=== PATIENT | female | born 1975 | race Caucasian/White ===

== ENCOUNTER 2023-06-04 21:20 | Outpatient (REF) | payer SELFPAY | END 2023-06-04 21:21 | disposition home or self-care (01) | LOC: LBN 21:20 | PROVIDERS: PCP Nurse Practitioner Family; Visit Provider Physician Assistant Medical | DX: J02.9 Acute pharyngitis, unspecified (principal) | CPT/HCPCS: 87070 ==

== ENCOUNTER 2024-07-05 19:10 | Outpatient (REF) | payer BC, SELFPAY ==
[2024-07-05 16:01] LABS: HCT 43.9 % (36.0-46.0); HGB 14.1 g/dL (11.2-15.7); MCH 29.5 pg (27.0-33.0); MCHC 32.1 % (32.0-36.0); MCV 92 fL (80-95); MPV 11.2 fL (8.0-11.0); Platelet Count 209 10^3/uL (130-400); RBC 4.78 10^6/uL (3.93-5.22); RDW 12.3 % (11.7-14.6); RDW-SD 41.3 fL; WBC 7.42 10^3/uL (4.4-10.8)
[2024-07-05 21:30] LABS: ALT 31 U/L (14-59); AST 23 U/L (15-37); Albumin 3.4 g/dL (3.4-5.0); Alkaline Phosphatase 84 U/L (46-116); Anion Gap 10.3 mmol/L (3-11); BUN 20 mg/dL (7-18); Bilirubin, Total 0.41 mg/dL (0.2-1.0); CO2 24.7 mmol/L (21.0-32.0); CREATININE 1.1 mg/dL (0.55-1.02); Calcium 8.8 mg/dL (8.5-10.1); Chloride 108 mmol/L (98-107); Estimated GFR 62.76 (mL/min/1.73m2); Glucose 86 mg/dL (74-106); Potassium 4.2 mmol/L (3.5-5.1); Sodium 143 mmol/L (136-145); Total Protein 7.2 g/dL (6.4-8.2)
== END 2024-07-05 19:11 | disposition home or self-care (01) ==
LOC: NCHCN 19:10
PROVIDERS: PCP Nurse Practitioner Family; Visit Provider Nurse Practitioner Family
DX: N18.1 Chronic kidney disease, stage 1 (principal)
CPT/HCPCS: 80053; 85027

== ENCOUNTER 2025-01-27 09:04 | Outpatient (REF) | payer OTHER, SELFPAY ==
[2025-01-27 16:06] LABS: HCT 39.7 % (36.0-46.0); HGB 13.1 g/dL (11.2-15.7); MCH 29.4 pg (27.0-33.0); MCV 89 fL (80-95); MPV 11.3 fL (8.0-11.0); Platelet Count 188 10^3/uL (130-400); RBC 4.45 10^6/uL (3.93-5.22); RDW 12.6 % (11.7-14.6); RDW-SD 41.1 fL; WBC 6.16 10^3/uL (4.4-10.8)
[2025-01-27 16:11] LABS: ESR 12 mm/hr (0-20)
[2025-01-27 16:51] LABS: Hemoglobin A1C 4.9 % (<5.7)
[2025-01-27 16:55] LABS: ALT 46 U/L (14-59); AST 27 U/L (15-37); Albumin 3.4 g/dL (3.4-5.0); Alkaline Phosphatase 85 U/L (46-116); Anion Gap 8.8 mmol/L (3-11); BUN 22 mg/dL (7-18); Bilirubin, Total 0.4 mg/dL (0.2-1.0); CO2 26.2 mmol/L (21.0-32.0); CREATININE 1.2 mg/dL (0.55-1.02); Calcium 9.4 mg/dL (8.5-10.1); Calculated LDL 59 mg/dL (<100); Chloride 105 mmol/L (98-107); Cholesterol 148 mg/dL (<200); Estimated GFR 56.19 (mL/min/1.73m2); Glucose 91 mg/dL (74-106); HDL Cholesterol 75 mg/dL (>or=50); Potassium 4.2 mmol/L (3.5-5.1); Sodium 140 mmol/L (136-145); TSH 1.11 uIU/mL (0.36-3.74); Total Protein 6.7 g/dL (6.4-8.2); Triglyceride 71 mg/dL (<150)
[2025-01-27 17:20] LABS: C-Reactive Protein 0.72 mg/dL (<or=0.5)
== END 2025-01-27 09:05 | disposition home or self-care (01) ==
LOC: NCHCN 09:04
PROVIDERS: PCP Nurse Practitioner Family; Visit Provider Nurse Practitioner Family
DX: M06.00 Rheumatoid arthritis without rheumatoid factor, unspecified site (principal); N18.1 Chronic kidney disease, stage 1; Z13.220 Encounter for screening for lipoid disorders; Z13.1 Encounter for screening for diabetes mellitus; Z13.29 Encounter for screening for other suspected endocrine disorder
CPT/HCPCS: 80053; 80061; 85027; 85652; 83036; 84443; 86140

== ENCOUNTER 2025-06-21 13:13 | Outpatient (REF) | payer OTHER, SELFPAY ==
[2025-06-21 14:41] LABS: Abs Immature Grans 0.02 10^3/uL (0.0-0.06); HCT 37.5 % (36.0-46.0); HGB 12.2 g/dL (11.2-15.7); Immature Grans % 0.3 %; MCH 29.0 pg (27.0-33.0); MCHC 32.5 % (32.0-36.0); MCV 89 fL (80-95); MPV 11.2 fL (8.0-11.0); Platelet Count 208 10^3/uL (130-400); RBC 4.21 10^6/uL (3.93-5.22); RDW 12.2 % (11.7-14.6); RDW-SD 39.6 fL; WBC 7.89 10^3/uL (4.4-10.8)
[2025-06-21 14:48] LABS: ESR 16 mm/hr (0-20)
[2025-06-21 15:08] LABS: ALT 35 U/L (14-59); AST 20 U/L (15-37); Albumin 3.1 g/dL (3.4-5.0); Alkaline Phosphatase 103 U/L (46-116); Anion Gap 8.1 mmol/L (3-11); BUN 18 mg/dL (7-18); Bilirubin, Total 0.3 mg/dL (0.2-1.0); C-Reactive Protein 5.80 mg/dL (<or=0.5); CO2 26.9 mmol/L (21.0-32.0); Calcium 8.5 mg/dL (8.5-10.1); Chloride 106 mmol/L (98-107); Estimated GFR 62.37 (mL/min/1.73m2); Glucose 101 mg/dL (74-106); Potassium 4.2 mmol/L (3.5-5.1); Sodium 141 mmol/L (136-145); Total Protein 6.7 g/dL (6.4-8.2)
[2025-06-21 16:25] LABS: PROTEIN 26.8 mg/dL; Prot/Crea Ur Ratio 0.35
[2025-06-21 16:27] LABS: WBC 0-2 HPF (0-5)
== END 2025-06-21 13:14 | disposition home or self-care (01) ==
LOC: NCHCN 13:13
PROVIDERS: PCP Nurse Practitioner Family; Visit Provider Nurse Practitioner Family
DX: M54.9 Dorsalgia, unspecified (principal); M06.00 Rheumatoid arthritis without rheumatoid factor, unspecified site; N02.B9 Other recurrent and persistent immunoglobulin A nephropathy
CPT/HCPCS: 80053; 85652; 81015; 82565; 84156; 85025; 86140; 87086